=== PATIENT | female | born 1960 ===

== ENCOUNTER 2016-09-15 12:12 | Emergency (ER) | payer MEDICAID, OTHER ==
[2016-09-15 12:18] VITALS: BMI 28.3
[2016-09-15 12:19] VITALS: BP 124/79; PULSE 94; RESP 17; TEMP 98.5; O2SAT 97
--- NOTE | 2016-09-15 13:13 | C.PDOC ---
History Of Present Illness 56 yr old female presents to the ER with complaints of sore throat and fever for 1 day. Patient states the fever went away today. Also reports of pain with swallowing. Patient denies chest pain, SOB, nausea, vomiting, abdominal pain, weakness or numbness. Time Seen by Provider: 09/15/16 12:51 Chief Complaint (Nursing): ENT Problem History Per: Patient History/Exam Limitations: no limitations Onset/Duration Of Symptoms: Days (1) Past Medical History Reviewed: Historical Data, Nursing Documentation, Vital Signs Vital Signs: Last Vital Signs Temp 98.5 F 09/15/16 12:19 Pulse 94 H 09/15/16 12:19 Resp 17 09/15/16 12:19 BP 124/79 09/15/16 12:19 Pulse Ox 97 09/15/16 15:04 Family History: States: No Known Family Hx - Social History Hx Tobacco Use: Yes Hx Alcohol Use: No Hx Substance Use: No - Immunization History Hx Tetanus Toxoid Vaccination: No Hx Influenza Vaccination: No Hx Pneumococcal Vaccination: No Review Of Systems Except As Marked, All Systems Reviewed And Found Negative. Constitutional: Positive for: Fever (No fever today) ENT: Positive for: Throat Pain (Sore throat ) Cardiovascular: Negative for: Chest Pain Respiratory: Negative for: Shortness of Breath Gastrointestinal: Negative for: Nausea, Vomiting, Abdominal Pain Neurological: Negative for: Weakness, Numbness Physical Exam - Physical Exam Appears: Well, Non-toxic, No Acute Distress Skin: Warm, Dry, No Rash Head: Atraumatic, Normacephalic Eye(s): bilateral: Normal Inspection, PERRL, EOMI Ear(s): Bilateral: Normal Nose: Normal Oral Mucosa: Moist Throat: Erythema, Exudate Neck: Normal ROM, No Midline Cervical Tenderness, Supple Lymphatic: Adenopathy (Cervical lymphadenopathy) Chest: Symmetrical, No Tenderness Cardiovascular: Rhythm Regular, No Murmur Respiratory: Normal Breath Sounds, No Rales, No Rhonchi, No Stridor, No Wheezing Extremity: Normal ROM, No Swelling Neurological/Psych: Oriented x3, Normal Speech, Normal Motor ED Course And Treatment O2 Sat by Pulse Oximetry: 97 Progress Note: On re-evaluation, Patient is resting comfortably, tolerating PO, and is afebrile at this time. Clinical signs and symptoms are not suggestive of sepsis, meningitis, UTI, pneumonia, intra-abdominal pathology, or cellulitis. Patient will be discharged home, and instructed to follow up with his/her physician in 1-2 days without fail. Patient was instructed to return for any worsening symptoms, persistent fever, neck pain, rash, abdominal pain, or vomiting. Disposition - Disposition Referrals: [facility] at [facility] [Outside] Disposition: HOME/ ROUTINE Disposition Time: 13:11 Condition: STABLE Additional Instructions: Follow up with the clinic in 2-5 days for further evaluation. Take medications as prescribed. Return to the emergency department at any time if symptoms persist or worsen. You may call [employer] for any assistance . Prescriptions: Amoxicillin 875 mg PO BID #14 tablet Mag&Al/Simet/Diphen/Lido [First Magic Mouthwash] 5 ml MM Q6 #1 kit Instructions: Pharyngitis (ED) - Clinical Impression Clinical Impression: Pharyngitis - PA / MANAGER RISK / Resident Statement MD/DO has reviewed & agrees with the documentation as recorded. - Scribe Statement The provider has reviewed the documentation as recorded by the Scribe Katie Krueger All medical record entries made by the Toñoibleatha were at my direction and personally dictated by me. I have reviewed the chart and agree that the record accurately reflects my personal performance of the history, physical exam, medical decision making, and the department course for this patient. I have also personally directed, reviewed, and agree with the discharge instructions and disposition.
== END 2016-09-15 13:25 | disposition home or self-care (01) ==
LOC: C.ER 12:12
DX: J02.9 Acute pharyngitis, unspecified (principal); Z72.0 Tobacco use

== ENCOUNTER 2017-06-27 15:18 | Emergency (ER) | payer MEDICAID, OTHER ==
[2017-06-27 15:18] VITALS: BMI 28.3
[2017-06-27 15:53] VITALS: PULSE 83; O2SAT 98
--- NOTE | 2017-06-27 16:46 | C.PDOC ---
History Of Present Illness Megan Pierre is a 57 year old female, with no significant past medical history , who presents to the emergency department complaining of left flank pain radiating to groin associated with nausea onset for a few months. Patient states the pain radiates to the right side and down her right knee. She is unable to bend her knee secondary to pain. She took Aleve with no relief of symptoms. Patient also reports dysuria ongoing for x3 months, and states she has had urinary frequency all her life. She has not seen a physician regarding the complaints and has not had any recent work up. She denies any fever, chills , chest pain, shortness of breath, vaginal bleeding or discharge. No further medical complaints. PMD: Efren Salazar Upon repeat examination patient states that she has pain and weakness in her right leg and has been treated by Dr Salazar for many years for chronic pain that has been generalized. She has been on pain medication in the past but does not want any narcotics at this time. She states that she has chronic low back pain and is having difficulty walking due to pain in her right leg. Time Seen by Provider: 06/27/17 16:16 Chief Complaint (Nursing): Abdominal Pain History Per: Patient History/Exam Limitations: no limitations Onset/Duration Of Symptoms: Days (few months) Current Symptoms Are (Timing): Still Present Quality Of Discomfort: "Pain" Associated Symptoms: Urinary Symptoms (dysuria, frequency. ). denies: Fever, Chills, Chest Pain, Other (SOB, vaginal bleeding or discharge. ) Abnormal Vaginal Bleeding: No Past Medical History Reviewed: Historical Data, Nursing Documentation, Vital Signs Vital Signs: Last Vital Signs Temp 98.8 F 06/27/17 15:49 Pulse 83 06/27/17 15:49 Resp 20 06/27/17 15:49 BP 122/77 06/27/17 15:49 Pulse Ox 98 06/27/17 17:35 - Medical History PMH: No Chronic Diseases Surgical History: No Surg Hx Family History: States: Unknown Family Hx - Social History Hx Tobacco Use: Yes Hx Alcohol Use: No Hx Substance Use: No - Immunization History Hx Tetanus Toxoid Vaccination: No Hx Influenza Vaccination: No Hx Pneumococcal Vaccination: No Review Of Systems Constitutional: Negative for: Fever, Chills Cardiovascular: Negative for: Chest Pain Respiratory: Negative for: Shortness of Breath Gastrointestinal: Positive for: Nausea, Abdominal Pain (left flank pain radiating to groin ) Genitourinary: Positive for: Dysuria, Frequency. Negative for: Vaginal Discharge, Vaginal Bleeding Musculoskeletal: Positive for: Back Pain, Leg Pain (right knee) Physical Exam - Physical Exam Skin: Warm, Dry Head: Atraumatic, Normacephalic Eye(s): bilateral: Normal Inspection, PERRL, EOMI Ear(s): Bilateral: Normal Nose: Normal Oral Mucosa: Moist Throat: Normal Neck: Normal ROM, Supple Cardiovascular: Rhythm Regular, No Murmur Respiratory: Normal Breath Sounds (tamia auscultation b/l ), No Wheezing Gastrointestinal/Abdominal: Bowel Sounds, Tenderness (RLQ, LLQ, umbilical) Back: No CVA Tenderness, No Vertebral Tenderness Extremity: Normal ROM, No Deformity, No Swelling, Other (straight leg raise test + at 20 degrees, pain goes to right groin. ) Extremity: Bilateral: No Pedal Edema, Normal Color And Temperature Neurological/Psych: Oriented x3 (alert), Normal Speech, Normal Cognition, No Normal Motor (weakness of right leg with difficulty lifting the leg off the bed) , Normal Sensation, Normal Reflexes Extremity: Right: Drift Before 10 Secs, Left: No Drift, Lower: No Drift, Drift Before 10 Secs ED Course And Treatment - Laboratory Results Result Diagrams: 06/27/17 16:55 06/27/17 16:55 Lab Interpretation: No Acute Changes O2 Sat by Pulse Oximetry: 98 (RA) Pulse Ox Interpretation: Normal - CT Scan/US Abdomen and pelvis without contrast Other Rad Studies (CT/US): Read By Radiologist, Radiology Report Reviewed CT/US Interpretation: Accession No. : [id number]. Patient Name / ID : BLAISE DA SILVA / [id number]. Exam Date : 06/27/2017 17:06:52 ( Approved ). Study Comment : Sex / Age : F / [id number]. Creator : Nona Howell MD. Dictator : Nona Howell MD. Electronic Engineering Technician : Chore Tender : Nona Howell MD. Approver2 : Report Date : 06/27/2017 17:18:19. My Comment : . PROCEDURE: CT Abdomen and Pelvis without Oral or IV contrast. HISTORY: abd pain. COMPARISON: None available. TECHNIQUE: Contiguous axial images of the abdomen and pelvis. No oral or IV contrast administered. Coronal and Sagittal reformats generated and reviewed. Radiation dose: Total exam DLP = 659.20 mGy-cm. This CT exam was performed using one or more of the following dose reduction techniques: Automated exposure control, adjustment of the mA and/ or kV according to patient size, and/or use of iterative reconstruction technique. FINDINGS: There is limited evaluation of the solid organs without the administration of IV contrast. LOWER THORAX: No visible consolidation, pleural effusion, or pneumothorax. Small hiatal hernia/distal esophageal wall thickening. LIVER: Unremarkable unenhanced appearance. GALLBLADDER AND BILE DUCTS: Unremarkable unenhanced appearance. PANCREAS: Unremarkable unenhanced appearance. SPLEEN: Unremarkable unenhanced appearance. ADRENALS: Unremarkable unenhanced appearance. KIDNEYS AND URETERS: Too small to characterize 5 mm left lower pole renal hypodensity ; statistically likely a cyst. No hydronephrosis or obstructing renal calculus. BLADDER: The urinary bladder appears unremarkable. REPRODUCTIVE: Uterus is present. APPENDIX: The appendix appears within normal limits of caliber. No secondary signs of acute appendicitis. BOWEL: The stomach is nondistended. Lack of oral contrast limits evaluation for bowel pathology. The bowel loops appear within normal limits of caliber without evidence of intestinal obstruction. PERITONEUM : No significant free fluid. No definite free air. LYMPH NODES: Sub cm prominent mesenteric lymph nodes, nonspecific. No bulky lymphadenopathy identified. VASCULATURE: No aortic aneurysm. BONES: Nonspecific 7 mm sclerotic focus in the right iliac, possibly bone island. Degenerative changes of the spine. OTHER FINDINGS: Tiny fat containing umbilical hernia. Fat containing right inguinal hernia. IMPRESSION: Too small to characterize 5 mm left lower pole renal hypodensity ; statistically likely a cyst. Sub cm prominent mesenteric lymph nodes, nonspecific. Tiny fat containing umbilical hernia. Fat containing right inguinal hernia. Small hiatal hernia/distal esophageal wall thickening. Progress Note: MRI of lumbar spine ordered. Patient is refusing the test at this time. States that she is claustrophobic and does not want to attempt to do the test even with IV Ativan. She is sitting on the edge of the bed, moving both legs and states that she wants to leave and will follow up as an outpatient. Reevaluation Time: 18:12 Medical Decision Making Medical Decision Making: Initial Plan: --Abd & Pelvis w/o PO or IV contrast [CT] --CMP --Lipase --CBC w/ differential --Morphine 2 mg IVP --Urinalysis --reevaluation 17:18 Abdomen/pelvis CT FINDINGS: There is limited evaluation of the solid organs without the administration of IV contrast. LOWER THORAX: No visible consolidation, pleural effusion, or pneumothorax. Small hiatal hernia/distal esophageal wall thickening. LIVER: Unremarkable unenhanced appearance. GALLBLADDER AND BILE DUCTS: Unremarkable unenhanced appearance. PANCREAS: Unremarkable unenhanced appearance. SPLEEN: Unremarkable unenhanced appearance. ADRENALS: Unremarkable unenhanced appearance. KIDNEYS AND URETERS: Too small to characterize 5 mm left lower pole renal hypodensity ; statistically likely a cyst. No hydronephrosis or obstructing renal calculus. BLADDER: The urinary bladder appears unremarkable. REPRODUCTIVE: Uterus is present. APPENDIX: The appendix appears within normal limits of caliber. No secondary signs of acute appendicitis. BOWEL: The stomach is nondistended. Lack of oral contrast limits evaluation for bowel pathology. The bowel loops appear within normal limits of caliber without evidence of intestinal obstruction. PERITONEUM: No significant free fluid. No definite free air. LYMPH NODES: Sub cm prominent mesenteric lymph nodes, nonspecific. No bulky lymphadenopathy identified. VASCULATURE: No aortic aneurysm. BONES: Nonspecific 7 mm sclerotic focus in the right iliac, possibly bone island. Degenerative changes of the spine. OTHER FINDINGS: Tiny fat containing umbilical hernia. Fat containing right inguinal hernia. IMPRESSION: Too small to characterize 5 mm left lower pole renal hypodensity ; statistically likely a cyst. Sub cm prominent mesenteric lymph nodes, nonspecific. Tiny fat containing umbilical hernia. Fat containing right inguinal hernia. Small hiatal hernia/distal esophageal wall thickening. Disposition - Disposition Referrals: [facility] at [facility] [Outside] Disposition: HOME/ ROUTINE Disposition Time: 18:13 Condition: STABLE Instructions: Musculoskeletal Pain (ED) Forms: [employer] (Chinese) - Clinical Impression Clinical Impression: Right leg pain, Weakness of right lower extremity, Abdominal pain, Dysuria - Scribe Statement [employer]reezy [place] Provider Attestation: All medical record entries made by the Scribe were at my direction and personally dictated by me. I have reviewed the chart and agree that the record accurately reflects my personal performance of the history, physical exam, medical decision making, and the department course for this patient. I have also personally directed, reviewed, and agree with the discharge instructions and disposition.
[2017-06-27 16:58] LABS: BASO # 0.1 K/uL (0.0-0.2); BASO % 0.7 % (0.0-2.0); EOS # 0.2 K/uL (0.0-0.7); EOS % 2.2 % (0.0-4.0); HEMOGLOBIN 13.7 g/dL (11.0-16.0); LYMPH # 3.1 K/uL (1.0-4.3); LYMPH % 38.6 % (20.0-40.0); MEAN CELL VOLUME 86.4 fL (81.0-99.0); MEAN CORPUSCULAR HEMOGLOBIN 29.8 pg (27.0-31.0); MEAN CORPUSCULAR HGB CONC 34.5 g/dL (33.0-37.0); MEAN PLATELET VOLUME 8.1 fL (7.2-11.7); MONO # 0.5 K/uL (0.0-0.8); MONO % 6.8 % (0.0-10.0); NEUT # 4.1 K/uL (1.8-7.0); NEUT % 51.7 % (50.0-75.0); RBC 4.58 Mil/uL (3.80-5.20); RED CELL DISTRIBUTION WIDTH 13.3 % (11.5-14.5)
[2017-06-27 17:11] LABS: URINE BACTERIA RARE (<OCC); URINE CLARITY CLEAR (Clear); URINE COLOR YELLOW (YELLOW); URINE GLUCOSE (UA) NEGATIVE (Normal)
[2017-06-27 17:12] LABS: PH,URINE 1.025 (5.0-8.0); URINE BILIRUBIN NEGATIVE (NEGATIVE); URINE BLOOD NEGATIVE (NEGATIVE); URINE LEUKOCYTE ESTERASE NEGATIVE Leu/uL (Negative); URINE NITRATE NEGATIVE (NEGATIVE); URINE PROTEIN NEGATIVE (NEGATIVE); URINE UROBILINOGEN 0.2 mg/dL (0.2-1.0)
[2017-06-27] MEDS ORDERED: Morphine 4 MG/ML VIAL ONE (17:17)
--- NOTE | 2017-06-27 17:19 | CT ---
PROCEDURE: CT Abdomen and Pelvis without Oral or IV contrast. HISTORY: abd pain COMPARISON: None available. TECHNIQUE: Contiguous axial images of the abdomen and pelvis. No oral or IV contrast administered. Coronal and Sagittal reformats generated and reviewed. Radiation dose: Total exam DLP = 659.20 mGy-cm. This CT exam was performed using one or more of the following dose reduction techniques: Automated exposure control, adjustment of the mA and/or kV according to patient size, and/or use of iterative reconstruction technique. FINDINGS: There is limited evaluation of the solid organs without the administration of IV contrast. LOWER THORAX: No visible consolidation, pleural effusion, or pneumothorax. Small hiatal hernia/distal esophageal wall thickening. LIVER: Unremarkable unenhanced appearance. GALLBLADDER AND BILE DUCTS: Unremarkable unenhanced appearance. PANCREAS: Unremarkable unenhanced appearance. SPLEEN: Unremarkable unenhanced appearance. ADRENALS: Unremarkable unenhanced appearance. KIDNEYS AND URETERS: Too small to characterize 5 mm left lower pole renal hypodensity ; statistically likely a cyst. No hydronephrosis or obstructing renal calculus. BLADDER: The urinary bladder appears unremarkable. REPRODUCTIVE: Uterus is present. APPENDIX: The appendix appears within normal limits of caliber. No secondary signs of acute appendicitis. BOWEL: The stomach is nondistended. Lack of oral contrast limits evaluation for bowel pathology. The bowel loops appear within normal limits of caliber without evidence of intestinal obstruction. PERITONEUM: No significant free fluid. No definite free air. LYMPH NODES: Sub cm prominent mesenteric lymph nodes, nonspecific. No bulky lymphadenopathy identified. VASCULATURE: No aortic aneurysm. BONES: Nonspecific 7 mm sclerotic focus in the right iliac, possibly bone island. Degenerative changes of the spine. OTHER FINDINGS: Tiny fat containing umbilical hernia. Fat containing right inguinal hernia. IMPRESSION: Too small to characterize 5 mm left lower pole renal hypodensity ; statistically likely a cyst. Sub cm prominent mesenteric lymph nodes, nonspecific. Tiny fat containing umbilical hernia. Fat containing right inguinal hernia. Small hiatal hernia/distal esophageal wall thickening.
[2017-06-27 17:24] LABS: ALB/GLOB RATIO 1.4 (1.0-2.1); ALBUMIN 4.3 g/dL (3.5-5.0); ALT/SGPT 51 U/L (9-52); AST/SGOT 26 U/L (14-36); BLOOD UREA NITROGEN 10 mg/dL (7-17); CALCIUM 8.2 mg/dl (8.6-10.4); GFR AFRICAN-AMERICAN > 60; GFR NON-AFRICAN AMERICAN > 60; LIPASE 98 U/L (23-300)
[2017-06-27 18:21] VITALS: BP 119/81; RESP 18; TEMP 98.2
== END 2017-06-27 18:30 | disposition home or self-care (01) ==
LOC: C.ER 15:18
DX: M79.604 Pain in right leg (principal); R53.1 Weakness; R30.0 Dysuria; R10.9 Unspecified abdominal pain

== ENCOUNTER 2017-10-02 10:52 | Emergency (ER) | payer OTHER ==
[2017-10-02 10:53] VITALS: BMI 28.3
[2017-10-02 11:06] VITALS: BP 139/79; PULSE 89; RESP 18; TEMP 98.4; O2SAT 98
[2017-10-02] MEDS ORDERED: Albuterol-Ipratrop 3 mg / 0.5 (3 ml) UD INH STA (11:11)
[2017-10-02] MEDS ORDERED: Tdap Vaccine 0.5 ml Vial (10-64 yrs) IM ONE ×2 (11:12→11:17)
[2017-10-02] MEDS ORDERED: Lidocaine 1% Inj (20ml) INFIL ONE ×2 (11:12→11:18)
[2017-10-02] MEDS ORDERED: Bacitracin 500 Units/gm Oint Foilpak UD TOP ONE (11:12)
--- NOTE | 2017-10-02 11:14 | C.PDOC ---
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 c/o pain and some decreased sensation to first and second toes. also feels like she is wheezing; sts this happens when outdoors at times. Time Seen by Provider: 10/02/17 11:05 Chief Complaint (Nursing): Abnormal Skin Integrity History Per: Patient History/Exam Limitations: no limitations Onset/Duration Of Symptoms: Hrs (1) Current Symptoms Are (Timing): Still Present Location Of Injury: Right: Foot Quality Of Symptoms: Painful Severity: Moderate Past Medical History Reviewed: Historical Data, Nursing Documentation, Vital Signs Vital Signs: Last Vital Signs Temp 98.4 F 10/02/17 11:05 Pulse 89 10/02/17 11:05 Resp 18 10/02/17 11:05 BP 139/79 10/02/17 11:05 Pulse Ox 98 10/02/17 12:32 - Medical History PMH: Bronchitis Family History: States: Unknown Family Hx - Social History Hx Tobacco Use: Yes (quit 4 yrs, ago, uses a vape now) Hx Alcohol Use: No Hx Substance Use: No - Immunization History Hx Tetanus Toxoid Vaccination: No Hx Influenza Vaccination: No Hx Pneumococcal Vaccination: No Review Of Systems Constitutional: Negative for: Fever, Chills Respiratory: Positive for: Cough, Shortness of Breath Musculoskeletal: Positive for: Foot Pain (right) Skin: Positive for: Other (laceration dorsum right foot) Neurological: Positive for: Numbness (dec sensation right first and second toes) Physical Exam - Physical Exam Appears: Non-toxic, Other (anxious appearing) Skin: Warm, Dry, Other (laceration dorsum right foot) Chest: No Deformity, No Tenderness Cardiovascular: Rhythm Regular, No Murmur Respiratory: No Decreased Breath Sounds, No Rales, No Rhonchi, No Wheezing Extremity: Tenderness (at site of laceration), Capillary Refill (less than 2 seconds), Other (3 cm x 2 cm x 3 cm flap laceratoin to dorsum right foot, no tendon injury noted. from all toes, mild dec sensation great and second toes. ) Pulses: Right Dorsalis Pedis: Normal Neurological/Psych: Oriented x3, Normal Speech, Normal Cognition ED Course And Treatment O2 Sat by Pulse Oximetry: 98 Laceration - Laceration Repair right foot Wound Length (In cm): 2cm x 3 cm x 3 cm Description Of Wound: Irregular Wound Cleansed With: Betadine, Sterile Saline Anesthesia: Lidocaine 1% Wound Examination: Irrigated With Saline, No FB With Wound Exploration, No Tendon Injury With Wound Exploration Wound Closure: Suture (#19) Suture Technique And Material Used: Nylon (5-0 ethilon) Wound Complexity: Simple Medical Decision Making Medical Decision Making: laceration to right foot- wound care, repair laceration tdap booster. duoneb for chest tightness/cough 1230 pm lungs clear, wound repaired pt made aware there is possiblilty flap of skin sutured may fail, and advised to observe for any signs of infection or for discoloratin of flap Disposition Counseled Patient/Family Regarding: Diagnosis, Need For Followup, Rx Given - Disposition Referrals: [facility] at [facility] [Outside] Disposition: HOME/ ROUTINE Disposition Time: 12:20 Condition: IMPROVED Additional Instructions: Keep wound clean and dry. Wash gently daily with soap and water, pat dry. apply antibiotic ointment. Watch for any signs of infection, such as redness, discharge from wound, swelling, discoloration of skin flap. Return to ER in case of this. Otherwise, suture removal in 10-14 days. Take antibiotics as prescribed. Tylenol or Motrin for pain. Prescriptions: Albuterol Sulfate [Ventolin Hfa] 2 puff IH Q6 PRN #1 inh PRN Reason: Wheezing Cephalexin [cephalexin] 500 mg PO Q6 #28 cap Instructions: Laceration Repair With Stitches (DC) Forms: [employer] ([place] Islander), General Discharge Instructions - Clinical Impression Clinical Impression: Laceration of right foot
[2017-10-02] MEDS ORDERED: Lidocaine Hydrochloride 10 ML INJ ONE (11:16)
[2017-10-02] MEDS ORDERED: Bacitracin 500 Units/gm Oint Foilpak UD ONE (11:21)
[2017-10-02] MEDS ORDERED: Albuterol-Ipratrop 3 mg / 0.5 (3 ml) UD ONE (11:21)
== END 2017-10-02 12:51 | disposition home or self-care (01) ==
LOC: C.ER 10:52
DX: S91.311A Laceration without foreign body, right foot, initial encounter (principal); W25.XXXA Contact with sharp glass, initial encounter

== ENCOUNTER 2017-10-03 18:53 | Emergency (ER) | payer OTHER ==
[2017-10-03 18:53] VITALS: BMI 28.3
[2017-10-03 18:58] VITALS: BP 160/90; PULSE 83; RESP 20; TEMP 98.2; O2SAT 98
[2017-10-03] MEDS ORDERED: Oxycodone/Acetaminophen 5/325 mg Tab PO STA (19:33)
--- NOTE | 2017-10-03 19:36 | C.PDOC ---
History Of Present Illness 57 year old female presents to the emergency department for evaluation of RIght foot pain s/p laceration repaired here in ED yesterday. Patient reports that her pain is constant and has worsened since yesterday. Patient admits to taking antibiotics but states "no pain medication was given". Patient has been taking Ibuprofen without relief. Patient denies fever, chills, RIght foot weakness, sensory or vascular deficits, denies wound redness, or discharge. Ambulate to ED , noted dressing and surgical boot. Time Seen by Provider: 10/03/17 19:17 Chief Complaint (Nursing): Lower Extremity Problem/Injury History Per: Patient History/Exam Limitations: no limitations Current Symptoms Are (Timing): Still Present - Ankle/Foot Alleviating Factor(s): denies: OTC Pain Medication Past Medical History Reviewed: Historical Data, Nursing Documentation, Vital Signs Vital Signs: Last Vital Signs Temp 98.2 F 10/03/17 18:55 Pulse 83 10/03/17 18:55 Resp 20 10/03/17 19:55 BP 160/90 H 10/03/17 18:55 Pulse Ox 98 10/03/17 23:46 - Medical History PMH: Bronchitis Surgical History: No Surg Hx Family History: States: Unknown Family Hx - Social History Hx Tobacco Use: Yes Hx Alcohol Use: No Hx Substance Use: No - Immunization History Hx Tetanus Toxoid Vaccination: No Hx Influenza Vaccination: No Hx Pneumococcal Vaccination: No Review Of Systems Constitutional: Negative for: Fever Skin: Negative for: Other (wound erythema, discharge) Physical Exam - Physical Exam Appears: Well, Non-toxic, No Acute Distress Skin: Normal Color, Warm Extremity: Normal ROM (Left foot), No Calf Tenderness, Capillary Refill (less than 2sec to B/L feet), No Deformity, Other (U-shaped laceration/flap closed w/ suture, appears clean, dry, intact, on the dorsal aspect of the right foot. Mild diffuse edema. no erythema, no wound discharges, no proximal streaking.) ED Course And Treatment O2 Sat by Pulse Oximetry: 98 (RA) Pulse Ox Interpretation: Normal Progress Note: Plan: Doryx 100mg PO. Ultram 50mg PO. On re-eval, pt is afebrile, hemodynamicaly stable. Right foot; wound was cleaned, xeroform dressing applied, sterile dressing, surgical shoe re-applied. Pt advised to switch abx. Advised on wound care. ref. to f/u with [employer] [facility] in 2-3 days for re-evaluation. return to Ed if any worsening or new changes. Disposition Counseled Patient/Family Regarding: Diagnosis, Need For Followup, Rx Given - Disposition Referrals: [facility] at [facility] [Outside] Disposition: HOME/ ROUTINE Disposition Time: 19:30 Condition: STABLE Additional Instructions: KEEP LEG ELEVATED, AVOID PROLONG WALKING CHANGE ANTIBIOTIC TO NEW ONE, TAKE PAIN MEDICATION PRESCRIBED KEEP WOUND CLEAN, DRY, APPLY ANTIBIOTIC TOPICALLY DAILY SUTURE REMOVAL IN 10 DAYS RETURN TO ED AT ANY TIME IF ANY WORSENING OR NEW CHANGES. Prescriptions: Doxycycline Hyclate 100 mg PO BID #14 cap traMADol [Ultram] 50 mg PO TID #10 tab Instructions: Laceration Repair With Stitches (DC) Forms: [employer] (Sao Tomean) - Clinical Impression Clinical Impression: Visit for wound check - PA / SPANISH SPEAKING BABYSITTER / Resident Statement MD/DO has reviewed & agrees with the documentation as recorded. - Scribe Statement The provider has reviewed the documentation as recorded by the Scribe (Reggie Chiang) All medical record entries made by the Scribe were at my direction and personally dictated by me. I have reviewed the chart and agree that the record accurately reflects my personal performance of the history, physical exam, medical decision making, and the department course for this patient. I have also personally directed, reviewed, and agree with the discharge instructions and disposition.
[2017-10-03] MEDS ORDERED: Oxycodone/Acetaminophen 5/325 mg Tab ONE (19:43)
== END 2017-10-03 19:55 | disposition home or self-care (01) ==
LOC: C.ER 18:53
DX: Z48.00 Encounter for change or removal of nonsurgical wound dressing (principal)

== ENCOUNTER 2017-10-19 12:31 | Emergency (ER) | payer OTHER ==
[2017-10-19 12:31] VITALS: BMI 28.3
[2017-10-19 12:45] VITALS: BP 130/84; PULSE 94; RESP 20; TEMP 98.3; O2SAT 98
--- NOTE | 2017-10-19 13:06 | C.PDOC ---
History Of Present Illness 57 year old female presents to the ED for suture removal. Patient was seen in the ED on 10/02 and had sutures placed on his right foot. Patient states wound is well-healing and denies fever, chills, discharge or any complaints at this time. Time Seen by Provider: 10/19/17 12:48 Chief Complaint (Nursing): Suture/Staple Removal History Per: Patient History/Exam Limitations: no limitations Onset/Duration Of Symptoms: Days Ago Current Symptoms Are (Timing): Better Location Of Injury: Right: Foot Quality Of Symptoms: denies: Painful, Itching, Swollen, Draining Additional History Per: Patient Past Medical History Reviewed: Historical Data, Nursing Documentation, Vital Signs Vital Signs: Last Vital Signs Temp 98.3 F 10/19/17 12:42 Pulse 94 H 10/19/17 12:42 Resp 20 10/19/17 12:42 BP 130/84 10/19/17 12:42 Pulse Ox 98 10/19/17 13:09 - Medical History PMH: Bronchitis, HTN Surgical History: No Surg Hx Family History: States: Unknown Family Hx - Social History Hx Tobacco Use: Yes Hx Alcohol Use: No Hx Substance Use: No - Immunization History Hx Tetanus Toxoid Vaccination: No Hx Influenza Vaccination: No Hx Pneumococcal Vaccination: No Review Of Systems Constitutional: Negative for: Fever, Chills Skin: Positive for: Other (suture removal, right foot ) Physical Exam - Physical Exam Appears: Non-toxic, No Acute Distress Skin: Normal Color, Warm, Dry, Other (sutures intact to dorsum of right foot. wound is well-healing. no erythema, discharge, or signs of infection ) Extremity: Normal ROM, No Tenderness, Capillary Refill (less than 2 seconds ), No Swelling Neurological/Psych: Oriented x3, Normal Speech, Normal Cognition ED Course And Treatment O2 Sat by Pulse Oximetry: 98 (on RA) Pulse Ox Interpretation: Normal Medical Decision Making Medical Decision Making: ALL SUTURES REMOVED SUCCESSFULLY. PATIENT TOLERATED WELL. WOUND BANDAGED. Disposition Counseled Patient/Family Regarding: Diagnosis, Need For Followup - Disposition Referrals: [facility] [Outside] [facility] [Outside] Disposition: HOME/ ROUTINE Disposition Time: 13:05 Condition: IMPROVED Instructions: Stitches Removal Forms: [facility] (Brazilian), Work Excuse - Clinical Impression Clinical Impression: Removal of suture - Scribe Statement The provider has reviewed the documentation as recorded by the Scribe (Patti Simms) Provider Attestation: All medical record entries made by the Scribe were at my direction and personally dictated by me. I have reviewed the chart and agree that the record accurately reflects my personal performance of the history, physical exam, medical decision making, and the department course for this patient. I have also personally directed, reviewed, and agree with the discharge instructions and disposition.
[2017-10-19] MEDS ORDERED: Bacitracin 500 Units/gm Oint Foilpak UD ONE (13:11)
== END 2017-10-19 13:34 | disposition home or self-care (01) ==
LOC: C.ER 12:31
DX: Z48.02 Encounter for removal of sutures (principal)

== ENCOUNTER 2017-11-15 14:30 | Emergency (ER) | payer OTHER ==
[2017-11-15 14:31] VITALS: BMI 28.3
[2017-11-15 14:46] VITALS: RESP 20; TEMP 98.7
--- NOTE | 2017-11-15 16:14 | RAD ---
PROCEDURE: Right Hip Radiographs. HISTORY: r/o fx COMPARISON: CT scan of the abdomen and pelvis dated 06/27/2017. FINDINGS: BONES: No acute fracture. JOINTS: Mild bilateral hip narrowing. SOFT TISSUES: Normal. OTHER FINDINGS: None. IMPRESSION: No demonstrated fracture or dislocation.
[2017-11-15 16:30] VITALS: BP 118/70; PULSE 72; O2SAT 96
--- NOTE | 2017-11-15 17:45 | C.PDOC ---
History Of Present Illness 57 y/o female presents to the ER complaining of chronic right hip pain which has been present for the past 2 months. Patient states that she has not seen a PMD for a while. Patient denies having falls and trauma. Chief Complaint (Nursing): Hip Pain History Per: Patient History/Exam Limitations: no limitations Onset/Duration Of Symptoms: Days Current Symptoms Are (Timing): Still Present Severity: Moderate Past Medical History Reviewed: Historical Data, Nursing Documentation, Vital Signs Vital Signs: Last Vital Signs Temp 98.7 F 11/15/17 14:42 Pulse 72 11/15/17 16:29 Resp 20 11/15/17 16:29 BP 118/70 11/15/17 16:29 Pulse Ox 96 11/15/17 17:48 - Medical History PMH: Bronchitis, HTN Other Surgeries: Hx of surgeries Family History: States: No Known Family Hx - Social History Hx Tobacco Use: Yes Hx Alcohol Use: No Hx Substance Use: No - Immunization History Hx Tetanus Toxoid Vaccination: No Hx Influenza Vaccination: No Hx Pneumococcal Vaccination: No Review Of Systems Except As Marked, All Systems Reviewed And Found Negative. Musculoskeletal: Positive for: Other (right hip pain ) Neurological: Negative for: Weakness, Numbness Physical Exam - Physical Exam Appears: Non-toxic, No Acute Distress Skin: Normal Color, Warm, Dry Head: Atraumatic, Normacephalic Eye(s): bilateral: Normal Inspection Nose: Normal Oral Mucosa: Moist Neck: Supple Chest: Symmetrical Cardiovascular: Rhythm Regular Respiratory: Normal Breath Sounds, No Rales, No Rhonchi, No Wheezing Extremity: Normal ROM, No Tenderness, No Swelling Neurological/Psych: Oriented x3, Normal Speech Gait: Steady ED Course And Treatment O2 Sat by Pulse Oximetry: 96 (RA) Pulse Ox Interpretation: Normal - Other Rad X- Ray- Hip/Pelvis X-Ray: Viewed By Me, Read By Radiologist Interpretation: PROCEDURE: Right Hip Radiographs. HISTORY: r/o fx. COMPARISON: CT scan of the abdomen and pelvis dated 06/27/2017. FINDINGS: BONES: No acute fracture. JOINTS: Mild bilateral hip narrowing. SOFT TISSUES : Normal. OTHER FINDINGS: None. IMPRESSION: No demonstrated fracture or dislocation. Medical Decision Making Medical Decision Making: Plan: -- X- Ray- Hip/ Pelvis Updates: X-Ray- Hip/ Pelvis was negative for fracture. Patient has been discharged and has been instructed to follow up with clinic in 5-7 days. Disposition - Disposition Referrals: [facility] [Outside] [facility] [Outside] Disposition: HOME/ ROUTINE Disposition Time: 16:15 Condition: GOOD Additional Instructions: REKHA WELSH, thank you for letting us take care of you today. Your provider was Mehrdad Finn DO and you were treated for RT SIDE PAIN. The emergency medical care you received today was directed at your acute symptoms. If you were prescribed any medication, please fill it and take as directed. It may take several days for your symptoms to resolve. Return to the Emergency Department if your symptoms worsen, do not improve, or if you have any other problems. Please contact your doctor or call one of the physicians/clinics you have been referred to that are listed on the Patient Visit Information form that is included in your discharge packet. Bring any paperwork you were given at discharge with you along with any medications you are taking to your follow up visit. Our treatment cannot replace ongoing medical care by a primary care provider outside of the emergency department. Thank you for allowing the [facility] team to be part of your care today. Follow up with the clinic in 5-7 days for outpatient care and management. Prescriptions: Ibuprofen [Motrin] 600 mg PO Q6 PRN #20 tab PRN Reason: Pain, Moderate (4-7) Instructions: Hip Pain (DC) Forms: [employer] (Syriac) - Clinical Impression Clinical Impression: Hip pain - Scribe Statement The provider has reviewed the documentation as recorded by the Anderson Smith Provider Attestation: All medical record entries made by the Scribe were at my direction and personally dictated by me. I have reviewed the chart and agree that the record accurately reflects my personal performance of the history, physical exam, medical decision making, and the department course for this patient. I have also personally directed, reviewed, and agree with the discharge instructions and disposition.
== END 2017-11-15 16:30 | disposition home or self-care (01) ==
LOC: C.ER 14:30
DX: M25.551 Pain in right hip (principal)

== ENCOUNTER 2018-01-17 21:08 | Emergency (ER) | payer SELFPAY ==
[2018-01-17 21:09] VITALS: BMI 28.3
[2018-01-17] MEDS ORDERED: Sodium Chloride 0.9% 1,000 ML IV ONE (21:32)
--- NOTE | 2018-01-17 21:43 | C.PDOC ---
History Of Present Illness 57 y/o female presents to the ED with multiple complaints. She reports having chronic, right hip pain for a few months. The patient states she used to take Aleve for the pain but stopped because she was not experiencing any relief. She had a hip X-Ray done in October with no significant findings, as per patient. She also c/o loose BM with any PO intake for the past three months. She denies any change in PO intake or significant weight loss. According to the patient,today she had tea, toast and a hamburger. She adds she has been feeling nausea with no vomiting. Time Seen by Provider: 01/17/18 21:25 Chief Complaint (Nursing): Abdominal Pain History Per: Patient History/Exam Limitations: no limitations Onset/Duration Of Symptoms: Days Current Symptoms Are (Timing): Still Present Associated Symptoms: Nausea, Diarrhea. denies: Vomiting Recent travel outside of the [place]: No Past Medical History Reviewed: Historical Data, Nursing Documentation, Vital Signs Vital Signs: Last Vital Signs Temp 98 F 01/17/18 21:16 Pulse 94 H 01/17/18 21:16 Resp 18 01/17/18 21:16 BP 150/80 01/17/18 21:16 Pulse Ox 99 01/17/18 21:52 - Medical History PMH: Bronchitis, HTN Other Surgeries: Herniorrhaphy left abdomen, breast reduction, cyst removal of both breasts Family History: States: Unknown Family Hx - Social History Hx Tobacco Use: Yes Hx Alcohol Use: No Hx Substance Use: No - Immunization History Hx Tetanus Toxoid Vaccination: Yes Hx Influenza Vaccination: No Hx Pneumococcal Vaccination: No Review Of Systems Except As Marked, All Systems Reviewed And Found Negative. Constitutional: Negative for: Fever Gastrointestinal: Positive for: Nausea, Diarrhea. Negative for: Vomiting, Abdominal Pain, Constipation Musculoskeletal: Positive for: Other (Right Hip Pain) Physical Exam - Physical Exam Appears: Well, Non-toxic, No Acute Distress Skin: Normal Color, Warm, Dry Head: Atraumatic, Normacephalic Eye(s): bilateral: PERRL, EOMI Ear(s): Bilateral: Normal Oral Mucosa: Moist Neck: Normal ROM, Supple Chest: Symmetrical Cardiovascular: Rhythm Regular, No Murmur Respiratory: Normal Breath Sounds, No Rales, No Rhonchi, No Wheezing Gastrointestinal/Abdominal: No Tenderness, No Distention, Other (Abdomen globus , obese) Extremity: Left: Hips Non-Tender (Tenderness to the right hip/groin area), Bilateral: Normal Color And Temperature, Normal ROM Pulses: Left Dorsalis Pedis: Normal, Right Dorsalis Pedis: Normal Neurological/Psych: Oriented x3, Normal Speech ED Course And Treatment - Laboratory Results Result Diagrams: 01/17/18 21:43 01/17/18 21:43 Lab Interpretation: Normal (ua neg, UDS/ETOH neg) Urine POC: Negative O2 Sat by Pulse Oximetry: 99 (RA) Pulse Ox Interpretation: Normal - Radiology CXR: Interpreted by Me CXR Interpretation: Yes: No Acute Disease - Other Rad abd x 2 X-Ray: Interpreted by Me (large stool throughout colon) Reevaluation Time: 22:43 Reassessment Condition: Improved Medical Decision Making Medical Decision Making: Impression: 57 y/o female with right hip pain and loose BM plan: -Alcohol serum -CMP -Drug Screen -Lipase -CBC -X-Ray obstructive series -Pepcid 20 mg IV -Protonix Inj 40 mg IV -Zofran Inj 4 mg IV -IV Fluids -UA -HCG chronic constipation large stool throughout colon pt claims soft watery stools but formed hard stool noted in rectum and sigmoid diet exercise educated. Weakness: no anemia/UTI Disposition Doctor Will See Patient In The: Office Counseled Patient/Family Regarding: Studies Performed, Diagnosis - Disposition Referrals: Non [facility] Provider, [Primary Care Provider] - Disposition: HOME/ ROUTINE Disposition Time: 22:44 Condition: GOOD Forms: [facility] (Chinese) - Clinical Impression Clinical Impression: Abdominal pain, colicky - PA / STRATEGY MANAGER / Resident Statement MD/DO has reviewed & agrees with the documentation as recorded. - Scribe Statement The provider has reviewed the documentation as recorded by the Scribe (Jackelin Chou) Provider Attestation: All medical record entries made by the Toñoibe were at my direction and personally dictated by me. I have reviewed the chart and agree that the record accurately reflects my personal performance of the history, physical exam, medical decision making, and the department course for this patient. I have also personally directed, reviewed, and agree with the discharge instructions and disposition.
[2018-01-17 21:50] LABS: BASO # 0.1 K/uL (0.0-0.2); BASO % 0.8 % (0.0-2.0); EOS # 0.2 K/uL (0.0-0.7); EOS % 2.3 % (0.0-4.0); HEMOGLOBIN 13.5 g/dL (11.0-16.0); LYMPH # 3.7 K/uL (1.0-4.3); LYMPH % 36.8 % (20.0-40.0); MEAN CORPUSCULAR HEMOGLOBIN 29.3 pg (27.0-31.0); MEAN CORPUSCULAR HGB CONC 34.1 g/dL (33.0-37.0); MEAN PLATELET VOLUME 8.1 fL (7.2-11.7); MONO # 0.6 K/uL (0.0-0.8); MONO % 5.6 % (0.0-10.0); NEUT # 5.5 K/uL (1.8-7.0); NEUT % 54.5 % (50.0-75.0); NRBC % 0.1 % (0.0-2.0); RBC 4.62 Mil/uL (3.80-5.20); RED CELL DISTRIBUTION WIDTH 13.6 % (11.5-14.5); WHITE BLOOD COUNT 10.1 K/uL (4.8-10.8)
[2018-01-17] MEDS ORDERED: Sodium Chloride 0.9% 1,000 ML ONE (21:50)
[2018-01-17 22:00] LABS: SQUAMOUS EPITHIAL 6 /hpf (0-5); URINE BILIRUBIN NEGATIVE (NEGATIVE); URINE BLOOD NEGATIVE (NEGATIVE); URINE CLARITY Hazy (Clear); URINE COLOR Yellow (YELLOW); URINE GLUCOSE (UA) NORMAL (Normal); URINE LEUKOCYTE ESTERASE NEG Leu/uL (Negative); URINE PROTEIN NEGATIVE (NEGATIVE); URINE UROBILINOGEN NORMAL mg/dL (0.2-1.0)
[2018-01-17 22:05] LABS: ALB/GLOB RATIO 1.3 (1.0-2.1); ALBUMIN 4.3 g/dL (3.5-5.0); ALT/SGPT 62 U/L (9-52); AST/SGOT 39 U/L (14-36); BLOOD UREA NITROGEN 15 mg/dL (7-17); CALCIUM 9.2 mg/dl (8.6-10.4); GFR NON-AFRICAN AMERICAN > 60; LIPASE 102 U/L (23-300)
[2018-01-17 22:13] LABS: BARBITURATES, UR NEGATIVE (NEGATIVE); BENZODIAZEPINES, UR NEGATIVE (NEGATIVE); OPIATES, UR NEGATIVE (NEGATIVE); PHENCYCLIDINE, UR NEGATIVE (NEGATIVE)
[2018-01-17 22:55] VITALS: BP 134/79; PULSE 77; RESP 14; TEMP 98.8; O2SAT 98
--- NOTE | 2018-01-18 10:59 | RAD ---
Date of service: 01/17/2018 PROCEDURE: Radiographs of the chest and abdomen (obstructive series) HISTORY: abd pain COMPARISON: None available. TECHNIQUE: AP radiograph of the chest, with upright and supine radiographs of the abdomen. FINDINGS: CHEST: Heart size appears within limits. No biapical pleural thickening and upper lobe granulomatous changes. Mild emphysematous changes. Mild basilar atelectasis. No focal consolidation, significant free fluid, or definite pneumothorax. Please note that chest x-ray has limited sensitivity for the detection of pulmonary masses. ABDOMEN AND PELVIS: Moderate constipation. No definite free air. No evidence of obstruction. Degenerative changes. IMPRESSION: No biapical pleural thickening and upper lobe granulomatous changes. Mild emphysematous changes. Mild basilar atelectasis. Moderate constipation.
== END 2018-01-17 22:55 | disposition home or self-care (01) ==
LOC: C.ER 21:08 → SUPCPDRO 21:08 → C.ER 22:55
DX: R10.84 Generalized abdominal pain (principal)
CPT/HCPCS: 74022; 80053; 81001; 83690; 84703; 85025; 96361; 96374; 96375; 99285; C9113; G0480; J2405; J7030

== ENCOUNTER 2018-05-16 18:02 | Emergency (ER) | payer SELFPAY ==
[2018-05-16 18:02] VITALS: BMI 28.3
[2018-05-16 18:15] VITALS: BP 149/87; PULSE 112; RESP 20; TEMP 98.5; O2SAT 96
--- NOTE | 2018-05-16 20:22 | C.PDOC ---
History Of Present Illness 58 year old male presents to the emergency department with complaints of bleeding to the upper lip, noticed when she was applying lipstick. Patient denies any other form of trauma or injury. She states that applying pressure to her lip did not improve the bleeding. She denies using anti-coagulants. Time Seen by Provider: 05/16/18 19:36 Chief Complaint (Nursing): Abnormal Skin Integrity History Per: Patient History/Exam Limitations: no limitations Onset/Duration Of Symptoms: Hrs Current Symptoms Are (Timing): Still Present Location Of Injury: Anterior: Mouth Quality Of Symptoms: Other (punctured, draining) Past Medical History Reviewed: Historical Data, Nursing Documentation, Vital Signs Vital Signs: Last Vital Signs Temp 98.5 F 05/16/18 18:12 Pulse 112 H 05/16/18 18:12 Resp 20 05/16/18 18:12 BP 149/87 05/16/18 18:12 Pulse Ox 96 05/16/18 18:12 - Medical History PMH: Bronchitis, HTN Surgical History: No Surg Hx Family History: States: No Known Family Hx - Social History Hx Tobacco Use: Yes Hx Alcohol Use: Yes Hx Substance Use: No - Immunization History Hx Tetanus Toxoid Vaccination: Yes Hx Influenza Vaccination: No Hx Pneumococcal Vaccination: No Review Of Systems Except As Marked, All Systems Reviewed And Found Negative. Constitutional: Negative for: Fever, Chills Skin: Positive for: Other (puncture wound) Neurological: Negative for: Weakness, Numbness Physical Exam - Physical Exam Appears: Well, Non-toxic, No Acute Distress Skin: Normal Color, Warm, Dry Head: Atraumatic, Normacephalic Eye(s): bilateral: Normal Inspection, PERRL, EOMI Oral Mucosa: Moist Tongue: Normal Appearing Lips: No Laceration, Other (small puncture wound with active bleeding to the mid upper lip ) Teeth: Other (partial frontal dentures in place ) Gingiva: Normal Appearing Cardiovascular: Rhythm Regular Respiratory: Normal Breath Sounds Neurological/Psych: Oriented x3 ED Course And Treatment O2 Sat by Pulse Oximetry: 96 Pulse Ox Interpretation: Normal Medical Decision Making Medical Decision Making: Continued applying pressure to the mid-upper lip with gauze. .5CC of lidocaine with epi used to the area. 1 suture of 5-0 vicryl applied to the upper lip with resolution of the bleeding. bacitracin oint applied . Patient is stable for discharge home. Disposition Counseled Patient/Family Regarding: Diagnosis, Need For Followup - Disposition Referrals: [facility] [Outside] Disposition: HOME/ ROUTINE Disposition Time: 20:18 Condition: STABLE Additional Instructions: Apply bacitracin / or neosporin oint to lips Return to ER if worse Instructions: Laceration Repair With Stitches (DC) Forms: [employer] (Upper Sorbian) - Clinical Impression Clinical Impression: Puncture wound of lip - PA / DISTRICT ASSOCIATE JUDGE / Resident Statement MD/DO has reviewed & agrees with the documentation as recorded. - Scribe Statement The provider has reviewed the documentation as recorded by the Scribe (Reggie) All medical record entries made by the Scribe were at my direction and personally dictated by me. I have reviewed the chart and agree that the record accurately reflects my personal performance of the history, physical exam, medical decision making, and the department course for this patient. I have also personally directed, reviewed, and agree with the discharge instructions and disposition.
== END 2018-05-16 20:43 | disposition home or self-care (01) ==
LOC: C.ER 18:02
DX: S01.531A Puncture wound without foreign body of lip, initial encounter (principal); X58.XXXA Exposure to other specified factors, initial encounter; I10 Essential (primary) hypertension; Z72.0 Tobacco use

== ENCOUNTER 2018-09-29 21:00 | Emergency (ER) | payer SELFPAY | END 2018-09-29 22:24 | disposition home or self-care (01) | LOC: C.ER 21:00 | CPT/HCPCS: 81001; 96372; 99284; J1885 ==